=== PATIENT | male | born 1965 | race Caucasian/White ===

== ENCOUNTER 2018-03-26 08:16 | Emergency (ER) | payer BC ==
--- OUTSIDE RECORDS SUMMARY | 2018-03-26 08:36 | XMS REPORT ---
:1965 External Reference #:[id number] Author Organization [facility] Address [address], [address] [place] [address] Phone [phone] Care Team Providers Name Role Phone Abdirahman Ellis MD Care Team Information Senior Mechanical Designer Unavailable Abdirahman Ellis MD Primary Care Physician Unavailable Payers Type Date Identification Numbers Payment Provider Subscriber Commercial Policy Number: [id number] Stephanie Pappas PayID: [id number] [address] [address] [place] [address] Problems Description No Information Social History Type Date Description Comments Marital Status ETOH Use Currently consumes alcohol socially Smoking Patient denies history of smoking Recreational Drug Use Never Used Drugs Allergies, Adverse Reactions, Alerts Date Description Reaction Status Severity Comments 02/27/2018 NKDA active Medications Medication Date Status Form Strength Qnty SIG Indications Ordering Provider Shingrix 02/27 Active Suspension 50mcg/0.5 1unit intramuscular Z23 , Rec ML s injection x1 MD Abdirahman Atorvastatin Active Tablets 10mg 1 by mouth Unknown Calcium /0000 every day Metoprolol Active Tablets 25mg 1 by mouth Unknown Tartrate /0000 twice a day Aspirin Adult Active Tablets DR 81mg 1 by mouth Unknown Low Dose /0000 every day Vital Signs Date Vital Result Comment 02/27/2018 BP Systolic 122 mmHg left arm, large cuff BP Diastolic 66 mmHg left arm, large cuff Body Temperature 98.7 F Heart Rate 58 /min Height 71 inches 5'11" Weight 280.00 lb BMI (Body Mass Index) 39.0 kg/m2 BSA (Body Surface Area) 2.43 m2 Beccaria body weight in kilograms 78 O2 % BldC Oximetry 95 % Results Description No Information Procedures Description No Information Plan of Care 02/27/2018 - Abdirahman Ellis [id number] Encounter for immunizationNew Medication: Shingrix 50 mcg/0.5MLZ00.01 Encounter for general adult medical exam w abnormal findingsNew Labs:CBC W/Automated DiffComprehensive Metabolic PanelLDL Cholesterol ProfileGlycohemoglobin [id number]:Please follow up with diagnostic studies listed as above.Immunizations/Injections:Tdap injectionShingrix Zoster Vaccine (HZV), Recombinant, Subunit, KsysautjmQ23.5 Hyperlipidemia, [id number] Old myocardial infarction
--- NOTE | 2018-03-26 08:44 | UC ---
Lower Extremity/Ankle HPI - HPI Summary HPI Summary: 52 y/o male presents to the urgent care c/o RT lower back, hip and RT thigh pain for the past 10 days, then about 2 days ago a rash w/ vesicles developed on his thigh radiating to the lower leg. Pt states at first he had a burning or tingling sensation, now pain is 4/10 dull, achy along the rash. Rash itches at times. He had low grade fever at the beginning of symptoms. Pt took Advil PO yesterday and pain decrease. Pt denies any previous to the lower back or hip. Pt denies saddle anesthesia, fecal or urinary incontinence, urinary symptoms, SOB, chest pain, abdominal pain, N/V/D. Pt had chicken pox as a child. - History of Current Complaint Stated Complaint: RT LEG MUSCLE PAIN,RASH Time Seen by Provider: 03/26/18 08:43 Hx Obtained From: Patient Onset/Duration: Gradual Onset, Lasting Days - 10 days, Still Present, Worse Since - 2 days ago when he developed a rash Severity Initially: Mild Severity Currently: Moderate Pain Intensity: 4 Pain Scale Used: 0-10 Numeric Aggravating Factor(s): Other - touching rash Alleviating Factor(s): Rest, OTC Meds Able to Bear Weight: Yes - Risk Factors Gout Risk Factors: Negative DVT Risk Factors: Negative Septic Arthritis Risk Factor: Negative - Allergies/Home Medications Allergies/Adverse Reactions: Allergies Allergy/AdvReac Type Severity Reaction Status Date / Time No Known Allergies Allergy Verified 03/26/18 08:38 Home Medications: Home Medications Aspirin EC TAB* [Ecotrin EC Low Dose 81 MG*] 81 mg PO DAILY 03/26/18 [History Confirmed 03/26/18] Atorvastatin* [Lipitor 10 MG*] 10 mg PO DAILY 03/26/18 [History Confirmed ] Metoprolol Tartrate TAB* [Lopressor TAB*] 25 mg PO BID 03/26/18 [History Confirmed 03/26/18] Multivitamins/Minerals TAB* [Theragran/minerals TAB*] 1 tab PO DAILY 03/26/18 [ History Confirmed 03/26/18] PMH/Surg Hx/FS Hx/Imm Hx - Additional Past Medical History Additional PMH: chicken pox Previously Healthy: Yes Endocrine History: Dyslipidemia Cardiovascular History: Hypertension, Myocardial Infarction - Family History Known Family History: Positive: Cardiac Disease, Hypertension - Social History Occupation: Employed Full-time Lives: With Family Review of Systems All Other Systems Reviewed And Are Negative: Yes Constitutional: Positive: Negative Skin: Positive: Rash - on medial aspct of thight radiating to the lower leg, painful w/ vesicles Eyes: Positive: Negative ENT: Positive: Negative Respiratory: Positive: Negative Cardiovascular: Positive: Negative Gastrointestinal: Positive: Negative Genitourinary: Positive: Negative Motor: Positive: Negative Neurovascular: Positive: Negative Musculoskeletal: Positive: Other: - RT hip pain, RT lower back pain, RT thigh pain Physical Exam - Summary Physical Exam Summary: Vital Signs Reviewed: Yes Appearance: Well-Appearing, Well-Nourished, obese male sitting in the examining table w/o any apparent distress. Eyes: Positive: Conjunctiva Clear - PERRLA, EOMI. ENT: Positive: Normal ENT inspection, Hearing grossly normal, Pharynx normal, TMs normal, Uvula midline Neck: Positive: Supple, Nontender, No Lymphadenopathy Respiratory: Positive: Chest non-tender, Lungs clear, Normal breath sounds, No respiratory distress Cardiovascular: Positive: RRR, No Murmur, Pulses Normal, Brisk Capillary Refill Abdomen Description: Positive: Nontender, No Organomegaly, Soft. Negative: CVA Tenderness (R), CVA Tenderness (L) Bowel Sounds: Positive: Present Musculoskeletal: Positive: Strength Intact, BACK: Patient walked into the urgent care room with symmetric ambulation, No signs of limping, antalgic, able to bear weight. No signs of trauma, No masses palpated. No tenderness at mid line, no flank ecchymosis . No sacroiliac notch tenderness, No saddle anesthesia. FROM. Patellar reflexes: brisk, symmetric Muscle strength lower extremities. Dorsiflexion/ plantar flexion of ankles. Heel/ toe walk. Lower extremities: Femoral, popliteal, posterior tibial, and dorsalis pedis pulses WNL. Pt refuse rectal exam. RT hip:No deformity, crepitus, or obvious asymmetry of the RT hip. No Tenderness to palpation over the symphysis pubis, ischial bone, trochanter, SI notch, buttocks, quadriceps, femoral triangle, inguinal ligament. Point tenderness on Rt lateral side of the hip below the iliac crest. Positive tenderness over thr RT inguinal lymph node. FROM of RT hip. Distal motor and neurovascular status are intact. Neurological: Positive: Alert, Muscle Tone Normal Psychological Exam: Normal Skin Exam:Positive mild erythematous maculopapular eruption, some scattered papules with clear vesicles. located in the mid medail aspect of the RT thigh in a dermatomal distribution towars the RT lower leg. mild tenderness to palpation, no swelling observed. Capillary refill brisk, pulses WNL, sensation WNL. Triage Information Reviewed: Yes Lower Extremity Course/Dx - Course Course Of Treatment: 52 y/o male presents to the urgent care c/o RT lower back, hip and RT thigh pain for the past 10 days, then about 2 days ago a rash w/ vesicles developed on his thigh radiating to the lower leg. Pt states at first he had a burning or tingling sensation, now pain is 4/10 dull, achy along the rash. Rash itches at times. He had low grade fever at the beginning of symptoms. Pt took Advil PO yesterday and pain decrease. Pt denies any previous to the lower back or hip. Pt denies saddle anesthesia, fecal or urinary incontinence, urinary symptoms, SOB, chest pain, abdominal pain, N/V/D. Pt had chicken pox as a child. Hx obtained. - Differential Dx/Diagnosis Differential Diagnosis/HQI/PQRI: Arthritis, Fracture (Closed), Infection, Sciatica, Sprain, Strain, Other - herpes zoster, herniated disc, poison jacky, Provider Diagnosis: Lower back pain, Hip pain, right, Herpes zoster, Degenerative disc disease, lumbar, Back muscle spasm Discharge - Sign-Out/Discharge Documenting (check all that apply): Patient Departure - D/c home All imaging exams completed and their final reports reviewed: Yes - Discharge Plan Condition: Stable Disposition: HOME Prescriptions: Cyclobenzaprine TAB* [Flexeril 10 MG TAB*] 10 mg PO TID PRN #21 tab PRN Reason: Spasms - Back ValACYclovir (*) [Valtrex 1 GM(*)] 1 gm PO TID #21 tab Patient Education Materials: Shingles (ED), Degenerative Disc Disease (ED) Referrals: [facility] [Outside] - 3 Days Additional Instructions: 1-Please take full course of VAltrex PO to alleviate rash. 2- Continue taking Advil PO or Tylenol PO to alleviate pain. Increase fluid intake , rest and eat well 3- There is a Degenerative disc Disease at L3-L4 , Take Flexeril PO as directed for muscle spasm. Do not drive if it makes you too drowsy. Wear a back support and f/u w/ your PCP for further management. 3-There is anincidental finding or B/L renal calculi about 5mm which is not given you any symptoms today. Just increase fluid intake. If you develop flank pain or urnary symptoms please go immediately to the ER for further management 4-Please F/u with your PCP in 1 week if rash is not resolving or further evaluation and treatment. - Billing Disposition and Condition Condition: STABLE Disposition: Home
[2018-03-26 08:47] VITALS: BP 123/73
== END 2018-03-26 10:01 | disposition home or self-care (01) ==
LOC: UCCORT 08:16
DX: M54.5 Low back pain (principal); M25.551 Pain in right hip; B02.9 Zoster without complications; M51.36 Other intervertebral disc degeneration, lumbar region; M62.830 Muscle spasm of back; I10 Essential (primary) hypertension; I25.2 Old myocardial infarction; E78.5 Hyperlipidemia, unspecified
CPT/HCPCS: 72110; 99202; G0463